=== PATIENT | female | born 1965 | race Caucasian/White ===

== ENCOUNTER 2021-02-19 09:47 | Emergency (ER) | payer BC, SELFPAY ==
[2021-02-19 10:14] VITALS: PULSE 72; RESP 20; TEMP 37.1; O2SAT 97; BMI 37.2
--- NOTE | 2021-02-19 10:26 | W.ED.COVID ---
HPI - COVID General: Chief Complaint: COVID symptoms Stated Complaint: NAUSEA, WEAK, BODY ACHES Time Seen by Provider: 02/19/21 10:23 Triage information: Has fever, cough or shortness of breath. No known COVID + exposure last 14 days History of Present Illness: HPI Narrative: Patient presents positive day for Covid as per testing outpatient facility. Patient says she has been nausea not keeping things down the last 3 days. Feels she is dehydrated. Also has headache. MD complaint: known COVID positive Prior covid testing: yes, results known Prior testing date: 02/19/21 COVID 19 common symptoms: positive fever(s), body aches, headache(s), nausea and vomiting; negative non-productive cough, productive cough, dyspnea, throat pain or nasal congestion COVID 19 other sytmptoms: negative chest pain Onset (ago): day(s) Severity: mild Treatment prior to arrival: acetaminophen and ibuprofen COVID Results: No Data to Display Review of Systems Const: Reports: fever(s) and body aches Eyes: Denies: change in vision or blurry vision ENMT: Denies: throat pain or nasal congestion Card: Denies: chest pain or dyspnea on exertion Resp: Denies: dyspnea, productive cough or non-productive cough GI: Reports: nausea and vomiting Musc: Denies: extremity pain Skin/Breast: Denies: rash Neuro: Reports: headache(s) Psych: Denies: anxiety or depression Jose/Lymph: Denies: easy bruising Physical Exam Const: COMMON NORMALS: no acute distress Resp: COMMON NORMALS: normal respiratory effort Psych: COMMON NORMALS: mental status grossly normal Course Vital Signs: Vital signs: Vital Signs Temperature 98.7 F 02/19/21 10:14 Pulse Rate 62 02/19/21 13:22 Respiratory Rate 18 02/19/21 13:22 Blood Pressure 163/88 02/19/21 13:22 Pulse Oximetry 97 02/19/21 13:22 MDM - COVID MDM Narrative: Medical decision making narrative: Patient did not qualify for bam infusion. Patient is positive Covid. Patient responded well to Zofran and fluids while here patient did not show dehydration by looking the labs. Patient was discharged home with instructions to self isolate. Monitor oxygen levels follow-up as needed. Lab Data: Labs: Lab Results 02/19/21 02/19/21 Range/Units 11:00 11:00 WBC 5.2 (4.0-10.0) 10^3/ uL RBC 5.30 (4.1-5.3) 10^6/u L Hgb 15.0 (11.5-15.3) g/dL Hct 47.5 H (37.0-47.0) % MCV 89.6 (81-99) fL MCH 28.3 (28.0-34.0) pg MCHC 31.6 (30.0-36.0) g/dL RDW 13.5 (12.1-15.1) % Plt Count 208 (130-400) 10^3/c mm MPV 11.3 H (7.4-10.4) fL Neut % (Auto) 67.5 % Lymph % (Auto) 25.4 % [place] % (Auto) 6.5 % Eos % (Auto) 0.0 % Baso % (Auto) 0.4 % Neut # (Auto) 3.51 (1.8-7.7) 10^3/u L Lymph # (Auto) 1.3 (0.8-4.8) 10^3/u L [place] # (Auto) 0.3 (0.2-0.9) 10^3/u L Eos # (Auto) 0.0 (0.0-0.8) 10^3/u L Baso # (Auto) 0.0 (0.0-0.1) 10^3/u L Nucleated RBC % (a uto) 0 % Nucleated RBCs # 0.0 /100WBC Sodium 139 (136-145) mmol/L Potassium 4.5 (3.5-5.1) mmol/L Chloride 103 (98-107) mmol/L Carbon Dioxide 25 (22-29) mmol/L Anion Gap 15.5 (5-19) BUN 15 (6-20) mg/dL Creatinine 0.9 (0.5-0.9) mg/dL GFR Calculation 64.8 L (90-130) mL/min Glucose 105 (65-115) mg/dL Calculated Osmolal ity 289 (285-295) mOsm/k g Calcium 9.4 (8.5-10.5) mg/dL COVID Results: No Data to Display Discharge Plan Discharge Patient Disposition: Home Clinical Impression: COVID-19 Condition: Stable Prescriptions: New Zofran 4 mg tablet 4 mg PO Q8H 3 Days Qty: 9 RF: 0 Discharge Orders: Discharge ED (Routine); Ordered 02/19/21 Ordered By: Jonatan Cosme Discharge Diet: Usual diet Discharge Activity: Increase activity as tolerated Patient Instructions: Viral Syndrome (ED) Activity Restrictions/Additional Instructions: Follow-up with medical provider as directed. Take medications as prescribed. Return to the ER or your medical provider if condition worsens. Please read and understand discharge instructions. If any questions ask please. Coding Level of Care Code ED [employer] Exam Expanded Problem Focused
[2021-02-19] MEDS: acetaminophen 500 mg Tablet 1000 MG PO (10:40)
[2021-02-19 10:47] VITALS: O2SAT 97
[2021-02-19] MEDS: sodium chloride 0.9% 1,000 ML 999 ML IV (11:06)
[2021-02-19 11:10] LABS: Basophils % 0.4 %; Hematocrit 47.5 % (37.0-47.0); Lymphocytes # 1.3 10^3/uL (0.8-4.8); Lymphocytes % 25.4 %; Mean Corpuscular HGB Conc 31.6 g/dL (30.0-36.0); Mean Corpuscular Hemoglobin 28.3 pg (28.0-34.0); Mean Corpuscular Volume 89.6 fL (81-99); Mean Platelet Volume 11.3 fL (7.4-10.4); Monocytes # 0.3 10^3/uL (0.2-0.9); Monocytes % 6.5 %; Neutrophils # 3.51 10^3/uL (1.8-7.7); Neutrophils % 67.5 %; Nucleated Red Blood Cells % 0 %; Platelet Count 208 10^3/cmm (130-400); Red Cell Distribution Width 13.5 % (12.1-15.1); White Blood Count 5.2 10^3/uL (4.0-10.0)
[2021-02-19 11:14] VITALS: BP 155/87; PULSE 65; RESP 20; O2SAT 98
[2021-02-19 11:33] LABS: Anion Gap 15.5 (5-19); Blood Urea Nitrogen 15 mg/dL (6-20); Calcium 9.4 mg/dL (8.5-10.5); Carbon Dioxide 25 mmol/L (22-29); Chloride 103 mmol/L (98-107); Glomerular Filtration Rate 64.8 mL/min (90-130); Glucose 105 mg/dL (65-115); Osmolality Calculated 289 mOsm/kg (285-295); Potassium 4.5 mmol/L (3.5-5.1); Sodium 139 mmol/L (136-145)
[2021-02-19] MEDS: ondansetron 2 mg/ML SDV 2 mL 4 MG IVP (12:22)
[2021-02-19 13:22] VITALS: BP 163/88; PULSE 62; RESP 18; O2SAT 97
== END 2021-02-19 13:20 | disposition home or self-care (01) ==
PROVIDERS: Emergency Provider Nurse Practitioner Family
DX: U07.1 COVID-19 (principal)
CPT/HCPCS: 80048; 85025; 96361; 96374; 99284; J2405; J7030

== ENCOUNTER 2021-05-03 13:09 | Outpatient (CLI) | payer BC, SELFPAY ==
--- NOTE | 2021-05-03 13:17 | MM_ITS ---
WS: [id number] SCREENING DIGITAL MAMMOGRAM WITH CAD HISTORY: SCREENING COMPARISON: 08/05/2016 and 05/06/2015 Bilateral CC and MLO views submitted. Computer aided detection analyzed. Breast composition: There are scattered areas of fibroglandular density. There is a new irregular asy mmetry in the RIGHT breast near 9:00 at a middle depth measuring 7 mm. Otherwise no change. MM/[id number] IMPRESSION: BI-RADS: 0-Incomplete: Need additional imaging evaluation FOLLOW UP: Need Additional Imaging RIGHT breast: Spot compression views (CC and MLO). True ML. Ultrasound to follo w if abnormality persists.
== END 2021-05-03 13:10 | disposition home or self-care (01) ==
LOC: RADSHAW 13:13
PROVIDERS: PCP Family Medicine; Visit Provider Family Medicine
DX: Z12.31 Encounter for screening mammogram for malignant neoplasm of breast (principal)
CPT/HCPCS: 77067

== ENCOUNTER 2021-05-22 14:09 | Outpatient (CLI) | payer BC, SELFPAY ==
--- NOTE | 2021-05-22 14:17 | US_ITS ---
WS: [id number] ADDITIONAL VIEWS RIGHT BREAST RIGHT breast ultrasound, limited HISTORY: ABNORMAL MAMMOGRAM RT BREAST COMPARISON: 05/03/2021, 08/05/2016 and 05/14/2015 Compression views right CC and MLO projection. True ML also submitted. The asymmetry persists in the RIGHT breast near 9:00. This is very ill-defined. There are similar adj acent asymmetries which have been stable over multiple prior years. RIGHT breast ultrasound, limited. Ultrasound is directed to the lateral RIGHT breast from 8-10 o'clock. There is an ovoid mixed echogen icity nodule measuring 7 x 4 x 8 mm which probably does correspond to the mammographic abnormality. T his has several cystic areas within it. There are additional cysts within the RIGHT breast at 10:00 a nd 9:00. US/US breast RT limited* [id number] IMPRESSION: BI-RADS: 3-Probably Benign FOLLOW-UP: 6 Month Follow-up Recommend 6 month diagnostic RIGHT mammogram and ultrasound follow-up. Favor th e changes in the RIGHT breast are probably fibrocystic disease but this needs t o be confirmed and followed up for stability.
== END 2021-05-22 14:10 | disposition home or self-care (01) ==
LOC: RADSHAW 14:12
PROVIDERS: PCP Family Medicine; Visit Provider Family Medicine
DX: R92.8 Other abnormal and inconclusive findings on diagnostic imaging of breast (principal)
CPT/HCPCS: 76642; 77065

== ENCOUNTER 2022-10-31 10:07 | Outpatient (CLI) | payer BC, SELFPAY ==
--- NOTE | 2022-10-31 10:18 | MM_ITS ---
WS: [id number] DIAGNOSTIC BILATERAL DIGITAL BREAST TOMOSYNTHESIS MAMMOGRAPHY WITH CAD RIGHT breast ultrasound, limited. HISTORY: 6[facility] COMPARISON: 05/22/2021, 05/03/2021 TECHNIQUE: Bilateral craniocaudad, mediolateral oblique, and mediolateral views are submitted with to mosynthesis and SM. Spot compression views RIGHT CC and MLO. Computer aided detection utilized. Breast composition: There are scattered areas of fibroglandular density. There are 2 asymmetries in t he upper outer quadrant of the RIGHT breast with the larger measures 9 mm near 10:00 at a middle dept h. Seen best on the CC projection. Additional very slight asymmetry resolves with additional imaging. The LEFT breast is negative. RIGHT breast ultrasound, limited. Ultrasound is directed to the upper outer quadrant of the RIGHT breast. At 10:00, 4 cm from the nippl e is a hypoechoic area with posterior shadowing. This is very ill-defined and difficult to reproduce in both scanning planes. Area measures approximately 1.2 x 1.5 x 1.2 cm. This is more posterior than expected as compared to the mammogram. Biopsy should be attempted. MM/[id number] IMPRESSION: BI-RADS: 4-Suspicious Finding-Biopsy Should Be Considered FOLLOW UP: Biopsy Recommended Recommend ultrasound-guided biopsy of the area of shadowing in the RIGHT breast at 10:00.
== END 2022-10-31 10:08 | disposition home or self-care (01) ==
LOC: RAD 10:12
PROVIDERS: PCP Family Medicine; Visit Provider Registered Nurse
DX: R92.8 Other abnormal and inconclusive findings on diagnostic imaging of breast (principal); N63.11 Unspecified lump in the right breast, upper outer quadrant
CPT/HCPCS: 76642; 77062; G0279